=== PATIENT | female | born 1960 | race American Indian/Alaskan Native ===

== ENCOUNTER 2020-05-04 23:51 | Emergency (ER) | payer OTHER ==
--- NOTE | 2020-05-05 01:24 | XRay Report ---
CHEST 2 VIEWS, 05/05/2020 1:13 AM INDICATION: Chest pain COMPARISON: None FINDINGS: Support devices: None. Heart: The cardiac silhouette is normal in size. Lungs/pleura: The lungs are clear of focal airspace disease or significant pleural effusion. Additional findings: No significant acute abnormality. IMPRESSION: 1. No evidence of acute cardiopulmonary process. Signer Name: Lucia Tejada MD Signed: 05/05/2020 1:19 AM Workstation Name: [id number]
[2020-05-05 02:03] LABS: Blood Urea Nitrogen 8 mg/dL (7-17); Calcium 9.6 mg/dL (8.4-10.2); Hemolysis Index 6
[2020-05-05 02:08] LABS: BUN/Creatinine Ratio 11
[2020-05-05 02:12] LABS: Basophils % (Auto) 0.6 % (0.0-1.8); Eosinophils % (Auto) 0.6 % (0.0-4.3); Hematocrit 38.2 % (30.3-42.9); Hemoglobin 13.1 gm/dl (10.1-14.3); Lymphocytes # (Auto) 0.7 K/mm3 (1.2-5.4); Lymphocytes % (Auto) 10.1 % (13.4-35.0); Mean Corpuscular HGB Conc 34 % (30-34); Mean Corpuscular Volume 85 fl (79-97); Monocytes % (Auto) 14.3 % (0.0-7.3); Platelet Count 263 K/mm3 (140-440); Red Blood Count 4.49 M/mm3 (3.65-5.03); Red Cell Distribution Width 13.5 % (13.2-15.2)
--- NOTE | 2020-05-05 04:29 | Emergency Department Report ---
ED General Adult HPI - General Chief complaint: Upper Respiratory Infection Stated complaint: FLU SX Time Seen by Provider: 05/05/20 03:38 Source: patient Mode of arrival: Ambulatory Limitations: No Limitations - Related Data Allergies Allergy/AdvReac Type Severity Reaction Status Date / Time No Known Allergies Allergy Unverified 05/05/20 00:51 ED Review of Systems ROS: Stated complaint: FLU SX Other details as noted in HPI ED Past Medical Hx - Past Medical History Previous Medical History?: Yes Hx GERD: Yes Hx Asthma: Yes Additional medical history: Hypergylcemia - Surgical History Past Surgical History?: Yes Additional Surgical History: Right Breast Biopsy - Social History Smoking Status: Never Smoker Substance Use Type: None ED Physical Exam - General Limitations: No Limitations ED Course Vital Signs 05/05/20 00:46 Temperature 99.1 F Pulse Rate 98 H Respiratory 18 Rate Blood Pressure 156/61 O2 Sat by Pulse 96 Oximetry ED Medical Decision Making - Lab Data Result diagrams: 05/05/20 01:09 05/05/20 01:09 Critical care attestation.: If time is entered above; I have spent that time in minutes in the direct care of this critically ill patient, excluding procedure time. ED Disposition Condition: Stable Referrals: DORCAS DELVALLE MD [Primary Care Provider] - 3-5 Days
--- NOTE | 2020-05-05 05:05 | Event Note ---
ED Screening Note Date of service: 05/05/20 Time: 05:03 ED Screening Note: Patient complains of chest pain x yesterday Also admits to mild cough and recent contact with Covid Denies any fever or hemoptysis History of asthma, denies smoking Mother and 2 brothers with history of MIs Rates chest pain is 9/10 in severity and describes it as sharp Also states some shortness of breath This initial assessment/diagnostic orders/clinical plan/treatment(s) is/are subject to change based on patients health status, clinical progression and re- assessment by fellow clinical providers in the ED. Further treatment and workup at subsequent clinical providers discretion. Patient/guardian urged not to elope from the ED as their condition may be serious if not clinically assessed and managed. Initial orders include: Labs Chest x-ray EKG
--- NOTE | 2020-05-05 07:39 | Emergency Department Report ---
ED General Adult HPI - General Chief complaint: Chest Pain Stated complaint: FLU SX Time Seen by Provider: 05/05/20 03:38 Source: patient Mode of arrival: Ambulatory Limitations: No Limitations - History of Present Illness Initial comments: 59-year-old -[place] female presents to the emergency room complaining of chills, shortness of breath and chest pain that started yesterday at 6:30 AM. Patient states her chest pain has improved. Patient does admit to being around Covid positive contact. Patient states she has not had a Covid test in months. She has a past medical history of GERD and asthma. She is followed by Dr. Huerta at [place]. Onset/Timin -: days(s) Severity scale (0 -10): 0 Consistency: intermittent Improves with: none Worsens with: none Associated Symptoms: chest pain, shortness of breath. denies: cough, diaphoresis, fever/chills, loss of appetite, nausea/vomiting, rash, syncope, weakness Treatments Prior to Arrival: none - Related Data Allergies Allergy/AdvReac Type Severity Reaction Status Date / Time No Known Allergies Allergy Unverified 05/05/20 00:51 ED Review of Systems ROS: Stated complaint: FLU SX Other details as noted in HPI Comment: All other systems reviewed and negative ED Past Medical Hx - Past Medical History Previous Medical History?: Yes Hx GERD: Yes Hx Asthma: Yes Additional medical history: Hypergylcemia - Surgical History Past Surgical History?: Yes Additional Surgical History: Right Breast Biopsy - Social History Smoking Status: Never Smoker Substance Use Type: None ED Physical Exam - General Limitations: No Limitations General appearance: alert, in no apparent distress - Head Head exam: Present: atraumatic, normocephalic - Eye Eye exam: Present: normal appearance - ENT ENT exam: Present: mucous membranes moist - Neck Neck exam: Present: normal inspection - Respiratory Respiratory exam: Present: normal lung sounds bilaterally. Absent: respiratory distress - Cardiovascular Cardiovascular Exam: Present: regular rate, normal rhythm. Absent: systolic murmur, diastolic murmur, rubs, gallop - GI/Abdominal GI/Abdominal exam: Present: soft, normal bowel sounds - Extremities Exam Extremities exam: Present: normal inspection - Back Exam Back exam: Present: normal inspection - Neurological Exam Neurological exam: Present: alert, oriented X3 - Psychiatric Psychiatric exam: Present: normal affect, normal mood - Skin Skin exam: Present: warm, dry, intact, normal color. Absent: rash ED Course Vital Signs 05/05/20 00:46 Temperature 99.1 F Pulse Rate 98 H Respiratory 18 Rate Blood Pressure 156/61 O2 Sat by Pulse 96 Oximetry ED Medical Decision Making - Lab Data Result diagrams: 05/05/20 01:09 05/05/20 01:09 - Medical Decision Making 59-year-old -[place] female presents to the emergency room complaining of chills, shortness of breath and chest pain that started yesterday at 6:30 AM. Patient states her chest pain has improved. Patient does admit to being around Covid positive contact. Patient states she has not had a Covid test in months. She has a past medical history of GERD and asthma. She is followed by Dr. Huerta at [place]. Chest x-ray within normal limits EKG is stable labs are stable. Rapid flu is negative. Recommend patient to take Tylenol or ibuprofen. Increase her fluid intake. Have a Covid test outpatient. Follow-up with her primary care provider. Critical care attestation.: If time is entered above; I have spent that time in minutes in the direct care of this critically ill patient, excluding procedure time. ED Disposition Clinical Impression: Viral syndrome Disposition: DC-01 TO HOME OR SELFCARE Is pt being admited?: No Does the pt Need Aspirin: No Condition: Stable Additional Instructions: Your symptoms appear most consistent with a nonspecific viral syndrome. However, given this current pandemic, COVID-19 is in the differential of possibilities. Despite your previous negative COVID-19 test, I do recommend repeat outpatient Covid 19 testing. In the meantime, isolate/quarantine yourself and stay away from anyone who is elderly, immunocompromised or chronically ill. You can use ibuprofen every 6-8 hours and Tylenol every 4-8 hours, using the dosing on the back of the bottle, as needed for any fever or body aches. Return to the emergency department with any worsening of your symptoms, development of chest pain or shortness of breath, or with any acute distress. Increase your fluid intake follow-up with your primary care provider and obtain an outpatient Covid test. Referrals: DORCAS DELVALLE MD [Primary Care Provider] - 3-5 Days Forms: Work/School Release Form(ED)
[2020-05-05 09:05] VITALS: BP 126/66
== END 2020-05-05 09:05 | disposition home or self-care (01) ==
LOC: ED 23:51
DX: B34.9 Viral infection, unspecified (principal); K21.9 Gastro-esophageal reflux disease without esophagitis; J44.9 Chronic obstructive pulmonary disease, unspecified
CPT/HCPCS: 36415; 71046; 80048; 83880; 84484; 85025; 87400; 93005